=== PATIENT | male | born 1950 | race Caucasian/White ===

== ENCOUNTER → 2016-11-25 | Day surgery (SDC) | payer MEDICARE, OTHER ==
[~2016-11-25] MED LIST: AMLO10TA2 PO; BEDSIDE COMMODE1 MI1; CPMMACHINE; DIAZ5TAB PO; FISHCAP4 PO; HYDR-3580 PO; KETOROLAC TROMETHAMINE 30 MG/ML (IVP) VIAL IV PUSH ONE; LACTATED RINGER'S 1000 ML INJ 1,000 ML ONE; LIDOCAINE HCL 1% 50 ML VIAL ONE; MIDAZOLAM HCL 2 MG/2 ML VIAL ONE; OLAN2.5T PO; PROPOFOL 200 MG/20 ML AMP IV ONE; WALKER WHEELS/F1 MIS
--- NOTE | 2016-11-25 14:18 | TN ---
cc: KATTY SPAIN DATE OF SURGERY: November 25, 2016 PREOPERATIVE DIAGNOSIS 1. Status post right total knee arthroplasty 2007. Dr. Ean Ricketst, July 01, 2008. 2. Right failed total knee arthroplasty. 3. Right knee stiffness. POSTOPERATIVE DIAGNOSIS 1. Status post right total knee arthroplasty 2007. Dr. Ean Ricketts, July 01, 2008. 2. Right failed total knee arthroplasty. 3. Right knee stiffness. PROCEDURE: Right knee manipulation, aspiration, with fluoroscopic guidance of needle under anesthesia. SURGEON Allyson Spain MD ORTHOPEDIC NURSE: Staff SPECIMEN 1. Right knee synovial fluid sent for a #1 aerobic, anaerobic culture and sensitivity. 2. Fungal smear and culture. 3. Synovial fluid analysis with differential including crystals. COMPLICATIONS None ANESTHESIA GENERAL. TIVA DRAINS: None. CONDITION: Stable. PLAN OF ACTIVITY: Is per orders. PROCEDURE: The patient was operating room had satisfactory anesthesia by the Department of Anesthesia. The right knee and lower extremity was prepped and draped in usual sterile manner. Under fluoroscopic guidance an 18 gauge spinal needle was introduced into the right knee joint. The knee was aspirated 20 cc of somewhat discolored synovial fluid. It would appear to be from the polyethylene and possible wear. This fluid was sent to microbiology for aerobic, anaerobic culture and sensitivity; fungal culture and smear; synovial fluid analysis with differential including crystals. The needle was the was withdrawn. Band-Aid placed over the aspiration site. The knee was manipulated under anesthesia. Flexion was to 120 degrees, extension was to 0 degrees. The patient tolerated the procedure well and arrived to the Recovery Room in stable and satisfactory history. X-RAY: X-ray right knee two views AP shows status post total knee arthroplasty and satisfactory placement of 18 gauge spinal needle in the right knee joint. An AP with a varus stress shows significant polyethylene wear involving the medial aspect of the tibial polyethylene and possibly metal component. MD TYRON Harrington/yuri /1:52 PM /2:09 PM
[2016-11-25 20:12] LABS: WBC, SYNOVIAL FLUID 89 /MM3 (0-200)
== END | disposition home or self-care (01) ==
LOC: ESDC 12:09
PROVIDERS: ATTEND Orthopaedic Surgery Orthopaedic Surgery of the Spine
DX: M24.661 Ankylosis, right knee (principal); Z96.651 Presence of right artificial knee joint; T84.092A Other mechanical complication of internal right knee prosthesis, initial encounter
CPT/HCPCS: 01380; 27570; 73560; 76000; 87015; 87070; 87102; 87116; 87205; 87206; 89051; 89060; J1885; J2250; J3010; J7120

== ENCOUNTER 2016-12-16 15:28 | Inpatient (IN) | payer MEDICARE, BC ==
[~2016-12-16] VITALS: Ht 182.9 cm; Wt 104.3 kg
[~2016-12-16 15:28] MED LIST changes: -BEDSIDE COMMODE1 MI1; -CPMMACHINE; -KETOROLAC TROMETHAMINE 30 MG/ML (IVP) VIAL IV PUSH ONE; -LACTATED RINGER'S 1000 ML INJ 1,000 ML ONE; -LIDOCAINE HCL 1% 50 ML VIAL ONE; -MIDAZOLAM HCL 2 MG/2 ML VIAL ONE; -PROPOFOL 200 MG/20 ML AMP IV ONE; -WALKER WHEELS/F1 MIS
[2016-12-18] MEDS ORDERED: BUPIVACAINE HCL PF 0.25% 30 ML VIAL NERV BLOCK ONE (08:55)
[2016-12-18] MEDS ORDERED: ROPIVACAINE 0.5% PF INJ 30 ML VIAL NERV BLOCK ONE (08:56)
[2016-12-18] MEDS ORDERED: DEXAMETHASONE SOD PHOS PF 10 MG/ML VIAL IV ONE (08:56)
[2016-12-18] MEDS ORDERED: BUPIVACAINE LIPOSOME PF 1.3% 20 ML VIAL ONE (08:57)
[2016-12-18] MEDS ORDERED: ceFAZolin 2 GM PREMIX 50 ML IV SCH (10:45)
[2016-12-18] MEDS ORDERED: CHLORHEXIDINE GLUCONATE 2 % 1 PACK (2 CLOTHS) TOPICAL PRN (10:45)
[2016-12-18] MEDS ORDERED: POVIDONE IODINE 5% (ANTISEPSIS KIT) 4 APPLICATIONS EACH NARE PRN (10:45)
[2016-12-18] MEDS ORDERED: SODIUM CHLORID 0.9% 500 ML IV PRN (10:45)
[2016-12-18] MEDS ORDERED: ROPIVACAINE PERI-ARTICULAR INJECTION. P-ARTICULR SCH ×5 (10:45)
[2016-12-18] MEDS ORDERED: INSULIN HUMAN REGULAR 1,000 UNITS/10 ML VIAL SQ PRN (10:45)
[2016-12-18] MEDS ORDERED: CHLORHEXIDINE GLUCONATE 4% SOLN 120 ML BTL TOPICAL SCH (10:45)
[2016-12-18] MEDS ORDERED: LACTATED RINGER'S 1000 ML IV PRN (10:45)
[2016-12-18] MEDS ORDERED: VANCOMYCIN 1000 MG/NS 250 ML (for <70 kg) IV SCH ×2 (10:45)
[2016-12-18] MEDS ORDERED: METOPROLOL TARTRATE 25 MG TAB PO PRN (10:45)
[2016-12-18 11:17] VITALS: BP 149/82; PULSE 78; RESP 18; TEMP 98; O2SAT 96
[2016-12-18] MEDS ORDERED: GENTAMICIN SULFATE 80 MG/2 ML VIAL ONE (11:46)
[2016-12-18] MEDS ORDERED: LACTATED RINGER'S 1000 ML INJ 2,000 ML IV ONE (12:00)
[2016-12-18] MEDS ORDERED: ePHEDrine/NS 25 MG/5 ML SYR IV ONE (12:00)
[2016-12-18] MEDS ORDERED: PHENYLEPH/NS 1000 MCG/10 ML SYR IV ONE (12:00)
[2016-12-18] MEDS ORDERED: PROPOFOL 200 MG/20 ML AMP IV ONE (12:00)
[2016-12-18] MEDS ORDERED: fentaNYL CITRATE 250 MCG/5 ML AMP ONE (12:06)
[2016-12-18] MEDS ORDERED: MIDAZOLAM HCL 2 MG/2 ML VIAL ONE (12:49)
[2016-12-18 12:53] LABS: AUTOMATED NEUTROPHIL # 2.8 TH/MM3 (1.8-7.7); BASOPHIL % 0.9 % (0.0-2.0); EOSINOPHIL # 0.2 TH/MM3 (0-0.4); EOSINOPHIL % 3.4 % (0.0-4.0); HEMATOCRIT 38.6 % (39.0-51.0); HEMO FLAGS DIFF FINAL; LYMPH % 32.3 % (9.0-44.0); LYMPHOCYTE # 1.7 TH/MM3 (1.0-4.8); MEAN CELL VOLUME 91.3 FL (80.0-100.0); MEAN CORPUSCULAR HEMOGLOBIN 30.7 PG (27.0-34.0); MEAN CORPUSCULAR HGB CONC 33.6 % (32.0-36.0); MONO % 9.9 % (0.0-8.0); NEUT % 53.5 % (16.0-70.0); PLATELET COUNT 244 TH/MM3 (150-450); RED BLOOD COUNT 4.23 MIL/MM3 (4.50-5.90); RED CELL DISTRIBUTION WIDTH 14.5 % (11.6-17.2); WHITE BLOOD COUNT 5.2 TH/MM3 (4.0-11.0)
[2016-12-18] MEDS ORDERED: ceFAZolin INJ 1,000 MG VIAL ONE (12:56)
[2016-12-18] MEDS: LACTATED RINGER'S 1000 ML INJ 1,000 ML IV SCH ×2 (15:11→23:21)
[2016-12-18] MEDS ORDERED: DIAZEPAM 5 MG TAB PO PRN (15:15)
[2016-12-18] MEDS ORDERED: ONDANSETRON HCL 4 MG/2 ML VIAL IVP PRN (15:15)
[2016-12-18] MEDS ORDERED: Post-op Orders (for Pharmacy) MISC XX ONE (15:15)
[2016-12-18] MEDS ORDERED: ZOLPIDEM TARTRATE 5 MG TAB PO PRN (15:15)
[2016-12-18] MEDS ORDERED: SODIUM CHLORIDE 0.9% FLUSH 5 ML FLUSH IVF PRN (15:15)
[2016-12-18] MEDS ORDERED: ALUMINUM/MAGNESIUM/SIMETH 30 ML CUP PO PRN (15:15)
[2016-12-18] MEDS ORDERED: MORPHINE SULFATE 8 MG/ML INJ IM PRN (15:15)
[2016-12-18] MEDS ORDERED: ACETAMINOPHEN/HYDROcodone 325 MG/7.5 MG TAB PO PRN (15:15)
[2016-12-18] MEDS ORDERED: CPMMACHINE (15:16)
[2016-12-18] MEDS ORDERED: BEDSIDE COMMODE1 MI1 (15:16)
[2016-12-18] MEDS ORDERED: WALKER WHEELS/F1 MIS (15:16)
--- NOTE | 2016-12-18 16:28 | PD.OP ---
cc: Vasile Butler MD; Wilmer Butler MD Operative Report Date of Surgery: Dec 18, 2016 Preoperative Diagnosis: Malfunctioning right total knee replacement arthroplasty Postoperative Diagnosis: Same Procedure: Revision right total knee replacement arthroplasty Anesthesia: Gen. Surgeon: Wilmer Butler Roll Forming Machine Operator(s): Vasile Butler Operation and Findings: EBL: 100 cc INDICATION: This patient presents with a history of previous right total knee replacement arthroplasty performed elsewhere. The patient is noted progressive instability and pain with swelling of the right knee. Studies show evidence of failure of the components. The femoral component is stating posterior and medially and has worn through the plastic and into and through most of the metal of the posterior medial tibial tray. The patient has had a workup considered to be negative for evidence of infection. He presents for surgical treatment. NOTE: Vasile Butler M.D. was present for the entire surgical procedure as my first aid director. In my medical opinion her skill and care was necessary for proper management of this patient. TOURNIQUET TIME: 125 minutes COMPANY: [employer] FEMUR: Size 5, posterior stabilized, right, cemented. 14 mm x 115 mm uncemented stem. 8 mm bilateral distal augment, 8 mm posterior lateral augment , 4 mm posterior medial augment. TIBIA: Size 5, fixed bearing, 115 mm x 14 mm uncemented stem PATELLA: Oval dome POLYETHYLENE INSERT: 17.5 mm, posterior stabilized mm PROCEDURE: This patient was brought the operating room and anesthetized in the supine position. The patient was positioned supine on the table. The tourniquet was placed about the thigh, and the leg was scrubbed with alcohol followed by Hibiclens followed by ChloraPrep and draped sterilely. A timeout was done, and antibiotics were given. After exsanguination the tourniquet was inflated to 250 mmHg. the previous incision was excised. Soft tissue flaps were created. A median parapatellar arthrotomy was made. The fluid appeared benign. 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 A total synovectomy was necessary removing all of the darkened tissue down to bleeding tissue. There was a failure of the polyethylene. Fragments of polyethylene came out. The posterior stabilized polyethylene stem was fractured allowing abnormal motion of the components. We checked carefully and found that the tibial component was externally rotated to where the center of the tibial component was along the lateral edge of the tibial tubercle. The femoral component was internally rotated approximately 15 compared to the epicondylar axis. Very carefully with osteotomes to work underneath the femoral component. We were able to remove this without removing very much bone. There was significant metallosis behind a portion of the posterior lateral femoral condyle which created a large cystic region posteriorly. The attention was then directed to the tibia. We used an oscillating saw underneath the medial portion of the tibia first followed by osteotomes. We were able to break the component free from the cement removing retrograde. This allowed us to remove all of the cement from the proximal tibia. Overall bone quality and the proximal tibia is felt to be very good quality in the distal femur was average. We reamed the tibia first reaming up to 14 mm for a 115 mm stem. We used that to build off and resected left tibia to have a stable bony construct. We then directed our attention to the femur reaming to the same size 14 mm x 115 mm femoral component. We performed a distal cut down to satisfactory bone initially anticipating a 4 mm buildup and changing to an 8 mm buildup.. We then performed anterior and posterior cuts. We did several trial reductions and found that a 8 mm buildup bilaterally distally was satisfactory with an 8 mm posterior buildup laterally and a 4 mm posterior buildup medially. We trialed this and found that a 17.5 mm insert had best stability. The bony surfaces were prepared and again irrigated copiously. A field block with local anesthesia was utilized. The components were built on the back table. 2 packs of Palacos cement was mixed. The components were cemented. The cement was allowed to harden. Trial reduction showed that a 17.5 mm had best stability in flexion and extension. The patient's motion was full extension to 125 flexion with no instability to varus or valgus stress. A drain was brought through a separate stab incision. The arthrotomy was repaired with interrupted #2 Tycron suture, subcutaneous tissue 2-0 Vicryl suture and skin with metallic beatrice A sterile dressing was applied. Sponge counts, needle counts and instrument counts were all correct. The patient tolerated procedure well and was taken to recovery in satisfactory condition. 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 There was failure of the components. There was some malrotation of the tibia versus the femur which may have contributed to that. At the end of the procedure, the rotation appeared be very satisfactory and function appeared be very satisfactory. Wilmer Butler MD Dec 18, 2016 16:28
[2016-12-18] MEDS ORDERED: DO NOT ADM ANY ANTICOAGULANT DRUGS PRN (16:44)
--- NOTE | 2016-12-18 17:51 | RADRPT ---
EXAM DATE/TIME: 12/18/2016 16:51 [facility] COMPARISON: KNEE RIGHT LTD (1 OR 2 VWS), November 25, 2016, 12:43. INDICATIONS : Post op right knee. MEDICAL HISTORY : None. SURGICAL HISTORY : None. ENCOUNTER: Initial ACUITY: 1 day PAIN SCORE: Non-responsive. LOCATION: Right knee. FINDINGS: 3 views right knee. Longstem right knee prosthesis. Hardware intact. No evidence of fracture. Alignme nt within normal limits. CONCLUSION: Postoperative appearance of longstem right knee prosthesis. Fransisco Sam MD on December 18, 2016 at 17:48 Board Certified Radiologist. This report was verified electronically.
[2016-12-18] MEDS ORDERED: *morphine SULFATE 8 MG/ML PERIprocedure ONLY ONE (18:19)
[2016-12-18 19:00] VITALS: BP 149/75; PULSE 78; RESP 17; TEMP 98.5; O2SAT 95
[2016-12-18] MEDS: SODIUM CHLORIDE 0.9% FLUSH 5 ML FLUSH IVF SCH (20:33)
[2016-12-18] MEDS: ACETAMINOPHEN/HYDROcodone 325 MG/7.5 MG TAB PO PRN (20:33)
[2016-12-19] VITALS (8 sets, daily range): BP systolic 117–155; BP diastolic 68–84; PULSE 73–81; RESP 16–17; TEMP 97.5–99.2; O2SAT 93–98
[2016-12-19 04:15] LABS: PROTHROMBIN TIME - PATIENT 10.8 SEC (9.8-11.6)
[2016-12-19] MEDS ORDERED: MAGNESIUM HYDROXIDE SUSP 30 ML CUP PO PRN (04:30)
[2016-12-19] MEDS ORDERED: LACTULOSE SYRUP 20 GM/30 ML CUP PO PRN (04:30)
[2016-12-19] MEDS ORDERED: SENNOSIDES 8.6 MG TAB PO PRN (04:30)
[2016-12-19] MEDS ORDERED: BISACODYL 10 MG SUPP RECTAL PRN (04:30)
[2016-12-19] MEDS: ACETAMINOPHEN/HYDROcodone 325 MG/7.5 MG TAB PO PRN ×4 (05:49→21:34)
--- NOTE | 2016-12-19 07:07 | HHI.FF ---
Face to Face Verification Diagnosis: (1) Painful total knee replacement Physical Therapy Gait training, Transfer training, bed to chair Knee: Total knee, Protocol: Right, Full weight bearing Right LE Weight Bearing: WB as tolerated Left LE Weight Bearing: WB as tolerated Nursing RN Days per Week: 3 x Week(s): 2 Nursing: Dressing changes (clean with alcohol and apply dry sterile dressing ) Additional Instructions PT/INR q Thursday and , call/text results to Nichole AMES [phone] Goal INR 1.5-1.8 I have seen patient Jackson Sage on 12/19/16. My clinical findings support the need for the requested home health care services because: High risk of falls I certify that my clinical findings support that this patient is homebound because: Post-op weakness Nichole Dobbs Dec 19, 2016 07:07
--- NOTE | 2016-12-19 07:09 | PD.ORT.PN ---
Subjective Subjective Remarks pt doing well, no complaints of SOB, no chest pain post op knee pain Objective Vitals Vital Signs Date Time Temp Pulse Resp B/P Pulse Ox O2 Delivery O2 Flow Rate FiO2 12/19/16 04:00 Room Air 12/19/16 04:00 97.7 78 16 155/78 96 12/19/16 00:00 Room Air 12/19/16 00:00 98.8 81 16 117/68 96 12/18/16 20:00 Room Air 12/18/16 19:00 98.5 78 17 149/75 95 12/18/16 18:25 73 14 130/69 97 Room Air 12/18/16 18:00 67 14 127/66 95 Room Air 12/18/16 17:45 71 14 123/70 96 Room Air 12/18/16 17:30 72 14 126/76 98 Room Air 12/18/16 17:15 64 14 125/68 98 Nasal Cannula 2 12/18/16 17:00 68 14 128/78 96 Nasal Cannula 2 12/18/16 16:40 97.5 77 14 132/71 98 Nasal Cannula 2 12/18/16 11:17 98.0 78 18 149/82 96 I/O 12/18/16 12/18/16 12/18/16 12/19/16 12/19/16 12/19/16 07:00 15:00 23:00 07:00 15:00 23:00 Intake Total 1861 ml 1081 ml Output Total 1695 ml 1100 ml Balance 166 ml -19 ml Intake Oral 480 ml 480 ml IV Total 631 ml 601 ml Other 750 ml Output Urine Total 1375 ml 950 ml Drainage Total 170 ml 150 ml Estimated Blood Loss 50 ml Autotransfusion 100 ml # Bowel Movements 0 0 Result Diagram: 12/18/16 1230 Other Results Laboratory Tests Test 12/19/16 03:47 Prothrombin Time 10.8 SEC (9.8-11.6) Prothromb Time International 1.0 RATIO Ratio Imaging Last 24 hours Impressions Knee X-Ray 12/18/16 1511 Signed Impressions: Service Date/Time: December 16:51 - CONCLUSION: Postoperative appearance of longstem right knee prosthesis. Fransisco Sam MD Objective Remarks seen by Dr. Vasile Butler right knee dressing dry and intact no calf tenderness neg homans sign Assessment & Plan Assessment and Plan POD # 1 s/p R TKA low dose coumadin for dvt prop, 7.5 mg today PT-WBAT anticipate discharge home with [facility] tomorrow Nichole Dobbs Dec 19, 2016 07:08
[2016-12-19] MEDS: DOCUSATE SODIUM 50 MG/SENNA 8.6 MG TAB PO SCH ×2 (10:30→21:32)
[2016-12-19] MEDS: SODIUM CHLORIDE 0.9% FLUSH 5 ML FLUSH IVF SCH ×2 (10:31→21:33)
[2016-12-19] MEDS: OLANZapine 2.5 MG TAB PO SCH (10:36)
--- NOTE | 2016-12-19 15:37 | PD.CONS ---
HPI Service [facility] Hospitalists Consult Requested By Dr. Butler Reason for Consult Medical management Primary Care Physician Derick Coy III, MD Diagnoses: History of Present Illness This is a 66-year-old male with significant past medical history hypertension, degenerative disc disease and lumbar radiculopathy, OA. Patient has prior history of right total knee arthroplasty 8 years ago. He started to have problems with instability and pain. He had imaging studies that showed evidence of failure of the components. Patient was admitted for elective surgery. Patient underwent revision of right total knee replacement arthroplasty. Hospitalist services are requested for medical management. Patient is resting comfortably, he is now sitting up in the chair. He denies any chest pain, shortness of breath. Dunham catheter has been removed and he is voiding without any difficulty. Review of Systems Constitutional: DENIES: Diaphoretic episodes, Fatigue, Fever, Weight gain, Weight loss, Chills, Dizziness, Change in appetite, Night Sweats Endocrine: DENIES: Heat/cold intolerance, Polydipsia, Polyuria, Polyphagia Eyes: DENIES: Blurred vision, Diplopia, Eye inflammation, Eye pain, Vision loss , Photosensitivity, Double Vision Ears, nose, mouth, throat: DENIES: Tinnitus, Hearing loss, Vertigo, Nasal discharge, Oral lesions, Throat pain, Hoarseness, Ear Pain, Running Nose, Epistaxis, Sinus Pain, Toothache, Odynophagia Respiratory: DENIES: Apneas, Cough, Snoring, Wheezing, Hemoptysis, Sputum production, Shortness of breath Cardiovascular: DENIES: Chest pain, Palpitations, Syncope, Dyspnea on Exertion , PND, Lower Extremity Edema, Orthopnea, Claudication Gastrointestinal: DENIES: Abdominal pain, Black stools, Bloody stools, Constipation, Diarrhea, Nausea, Vomiting, Difficulty Swallowing, Anorexia Genitourinary: DENIES: Sexual dysfunction, Urinary frequency, Urinary incontinence, Urgency, Hematuria, Dysuria, Nocturia, Penile Discharge, Testicular Pain, Testicular Swelling Musculoskeletal: COMPLAINS OF: Joint pain, Back pain Integumentary: DENIES: Abnormal pigmentation, Nail changes, Pruritus, Rash Hematologic/lymphatic: DENIES: Bruising, Lymphadenopathy Immunologic/allergic: DENIES: Eczema, Urticaria Neurologic: DENIES: Abnormal gait, Headache, Localized weakness, Paresthesias, Seizures, Speech Problems, Tremor, Poor Balance Psychiatric: DENIES: Anxiety, Confusion, Mood changes, Depression, Hallucinations, Agitation, Suicidal Ideation, Homicidal Ideation, Delusions Past Family Social History Past Medical History Hypertension Osteoarthritis Degenerative disc disease Lumbar radiculopathy Past Surgical History Right knee manipulation and aspiration November 25, 2016 Left partial knee replacement Hernia repair Reported Medications Reported Meds & Active Scripts Active Reported Diazepam 5 Mg Tab 5 Mg PO HS PRN Olanzapine 2.5 Mg Tab 2.5 Mg PO DAILY Fish Oil + D3 (Fish Oil-Cholecalciferol) 1,200-1,000 Mg-Unit Cap 1 Cap PO DAILY Amlodipine (Amlodipine Besylate) 10 Mg Tab 10 Mg PO DAILY Hydrocodone-Acetaminophen 7.5-325 mg Tab 1 Tab PO Q6H PRN Allergies: Coded Allergies: No Known Allergies (Unverified , 12/18/16) Active Ordered Medications Inpatient Medications Acetaminophen/ Hydrocodone Bitart ([place] 7.5-325 Mg) 2 tab Q4H PRN PO PAIN SCALE 5 TO 10; Start 12/18/16 at 15:15 Al Hydrox/Mg Hydrox/Simethicone (Mag-Al Plus Susp Liq) 30 ml Q6H PRN PO INDIGESTION; Start 12/18/16 at 15:15 Amlodipine Besylate (Norvasc) 10 mg DAILY PO Last administered on 12/19/16 10: 29; Start 12/19/16 at 09:00 Bisacodyl (Dulcolax Supp) 10 mg DAILY PRN RECTAL SEVERE CONSTIPATION; Start 12/19/16 at 04:30 Cefazolin Sodium/ Dextrose 50 ml @ 100 mls/hr HEADING AND PRIMING OPERATOR IV Last administered on 12/18/16 13:08; Start 12/18/16 at 10:45; Stop 12/19/16 at 04:25; Status DC Cefazolin Sodium/ Sodium Chloride (Ancef Inj/NS Inj) 100 ml @ 200 mls/hr Q6H IV Last administered on 12/19/16 05:50; Start 12/18/16 at 18:00; Stop 12/19/16 at 06:43; Status DC Chlorhexidine Gluconate (Chlorhexidine 2% Cloth) 3 pack HEADING AND PRIMING OPERATOR PRN TOPICAL SEE LABEL COMMENTS Last administered on 12/18/16 10:45; Start 12/18/16 at 10:45; Stop 12/19/16 at 04:26; Status DC Chlorhexidine Gluconate 1 applic 1 applic ONCE TOPICAL Last administered on 12/18 11:10; Start 12/18/16 at 10:45; Stop 12/19/16 at 04:25; Status DC Diazepam (Valium) 5 mg HS PRN PO ANXIETY; Start 12/18/16 at 15:15 Insulin Human Regular (NovoLIN R INJ) See Protocol Table ... HEADING AND PRIMING OPERATOR PRN SQ SEE PROTOCOL TABLE; Start 12/18/16 at 10:45; Stop 12/19/16 at 04:26; Status DC IV Flush (NS Flush) 2 ml UNSCH PRN IVF FLUSH AFTER USING IV ACCESS; Start at 15:15 IV Flush 2 ml 2 ml BID IVF Last administered on 12/19/16 10:31; Start 12/18/16 at 21:00 Lactated Ringer's (Lr 1000 ml Inj) 1,000 ml @ 80 mls/hr [id number] IV Last administered on 12/18/16 23:21; Start 12/18/16 at 15:11 Lactulose (Lactulose Liq) 30 ml DAILY PRN PO SEVERE CONSTIPATION Last administered on 12/19/16 10:29; Start 12/19/16 at 04:30 Magnesium Hydroxide (Milk Of Magnesia Liq) 30 ml Q12H PRN PO MILD CONSTIPATION Last administered on 12/19/16 10:29; Start 12/19/16 at 04:30 Metoprolol Tartrate (Lopressor) 25 mg HEADING AND PRIMING OPERATOR PRN PO SEE LABEL COMMENTS; Start 12/18/16 at 10:45; Stop 12/19/16 at 04:26; Status DC Miscellaneous Information ALL NURSING DEPARTME... UNSCH PRN .XX SEE LABEL COMMENTS; Start 12/18/16 at 16:44; Stop 12/19/16 at 16:43 Miscellaneous Information (Post-op Orders (for Pharmacy)) STAT ONCE XX ; Start 12/18/16 at 15:15; Stop 12/18/16 at 16:41; Status DC Morphine Sulfate (Morphine Inj) 4 mg Q3H PRN IM Pain >7 when off SEM MANAGER; Start 12/18/16 at 15:15 Olanzapine 2.5 mg 2.5 mg DAILY PO Last administered on 12/19/16 10:36; Start at 09:00 Ondansetron HCl (Zofran Inj) 4 mg Q6H PRN IVP NAUSEA OR VOMITING; Start at 15:15 Patient Medication Teaching (Coumadin Booklet) 1 ONCE ONCE XX ; Start 12/18/16 at 16:00; Stop 12/18/16 at 16:01; Status DC Povidone Iodine (Betadine 5% Antisepsis Kit) 1 applic HEADING AND PRIMING OPERATOR PRN EACH NARE SEE LABEL COMMENTS Last administered on 12/18/16 11:10; Start 12/18/16 at 10:45; Stop 12/19/16 at 04:26; Status DC Ropivacaine 24.63 ml/Ketorolac Tromethamine 30 mg/Epinephrine HCl 0.5 mg/ Clonidine 80 mcg/ Sodium Chloride 100 ml @ 200 mls/hr ONCE P-ARTICULR Last administered on 12/18/16 13:49; Start 12/18/16 at 10:45; Stop 12/19/16 at 04:26; Status DC Senna/Docusate Sodium (Mariaelena-Colace) 1 tab BID PO Last administered on 12/19/16 10:30; Start 12/19/16 at 09:00 Sennosides (Senokot) 17.2 mg Q12H PRN PO MODERATE CONSTIPATION Last administered on 12/19/16 10:30; Start 12/19/16 at 04:30 Sodium Chloride (NS 500 ml Inj) 500 ml @ 30 mls/hr [id number] PRN IV SEE LABEL COMMENTS; Start 12/18/16 at 10:45; Stop 12/19/16 at 04:26; Status DC Vancomycin HCl 1000 mg/Sodium Chloride 250 ml @ 250 mls/hr HEADING AND PRIMING OPERATOR IV Last administered on 12/18/16 11:20; Start 12/18/16 at 10:45; Stop 12/21/16 at 10:44 Warfarin Sodium (Coumadin) 7.5 mg ONCE ONCE PO ; Start 12/19/16 at 16:00; Stop 12/19/16 at 16:01 Zolpidem Tartrate (Ambien) 5 mg HS PRN PO SLEEP Last administered on 12/18/16 23:20; Start 12/18/16 at 15:15 Family History Positive for cancer Social History Patient lives with significant other, he is retired. No smoking, social alcohol , no substance abuse. Physical Exam Vital Signs Vital Signs Date Time Temp Pulse Resp B/P Pulse Ox O2 Delivery O2 Flow Rate FiO2 12/19/16 12:00 99.2 78 16 130/69 96 12/19/16 08:00 98.8 80 16 141/84 95 12/19/16 04:00 Room Air 12/19/16 04:00 97.7 78 16 155/78 96 12/19/16 00:00 Room Air 12/19/16 00:00 98.8 81 16 117/68 96 12/18/16 20:00 Room Air 12/18/16 19:00 98.5 78 17 149/75 95 12/18/16 18:25 73 14 130/69 97 Room Air 12/18/16 18:00 67 14 127/66 95 Room Air 12/18/16 17:45 71 14 123/70 96 Room Air 12/18/16 17:30 72 14 126/76 98 Room Air 12/18/16 17:15 64 14 125/68 98 Nasal Cannula 2 12/18/16 17:00 68 14 128/78 96 Nasal Cannula 2 12/18/16 16:40 97.5 77 14 132/71 98 Nasal Cannula 2 Physical Exam GENERAL: This is a well-nourished, well-developed patient, in no apparent distress. SKIN: No rashes, ecchymoses or lesions. Cool and dry. HEAD: Atraumatic. Normocephalic. No temporal or scalp tenderness. EYES: Pupils equal round and reactive. Extraocular motions intact. No scleral icterus. No injection or drainage. ENT: Nose without bleeding, purulent drainage or septal hematoma. Throat without erythema, tonsillar hypertrophy or exudate. Uvula midline. Airway patent. NECK: Trachea midline. No JVD or lymphadenopathy. Supple, nontender, no meningeal signs. CARDIOVASCULAR: Regular rate and rhythm without murmurs, gallops, or rubs. RESPIRATORY: Clear to auscultation. Breath sounds equal bilaterally. No wheezes , rales, or rhonchi. GASTROINTESTINAL: Abdomen soft, non-tender, nondistended. No hepato-splenomegaly , or palpable masses. No guarding. MUSCULOSKELETAL: Right leg in bulky dressing, intact sensation to right foot. Right pedal pulse 2+. Has a Hemovac drain with sanguinous drainage. No other joint abnormality. Left pedal pulse 2+. NEUROLOGICAL: Awake and alert. Cranial nerves II through XII intact. Motor and sensory grossly within normal limits. Five out of 5 muscle strength in all muscle groups. Normal speech. Laboratory Laboratory Tests Test 12/19/16 03:47 Prothrombin Time 10.8 Prothromb Time International 1.0 Ratio Result Diagram: 12/18/16 1230 Imaging Last Impressions Knee X-Ray 12/18/16 1511 Signed Impressions: Service Date/Time: , December 18, 2016 16:51 - CONCLUSION: Postoperative appearance of longstem right knee prosthesis. Fransisco Sam MD A/P Diagnosis: (1) Lumbar degenerative disc disease (2) Low back pain (3) right tota knee arthroplasty revision (4) HTN (hypertension) (5) Osteoarthritis Assessment and Plan Thank you for this consultation, we will assist with medical management 66-year-old male with history of OA, prior history of right total knee arthroplasty 8 years ago. Recent findings of failure of components. Admitted for elective surgery, status post revision right total knee replacement arthroplasty. -Continue with postoperative orthopedic care Bowel regimen Pain management Warfarin for DVT prophylaxis, follow INR daily Hypertension, stable Continue home medications History of degenerative disc disease and chronic low back pain Continue with current pain management Continue with Coumadin for DVT prophylaxis Plan of care has been discussed with the patient, attending and registered nurse. Further management of the patient will be dependent on the hospital course This patient was seen by myself and Dr. Conn, this consultation is written on her behalf Problem Qualifiers (1) Low back pain: Qualified Code: M54.5 - Chronic low back pain, unspecified back pain laterality , with sciatica presence unspecified (2) HTN (hypertension): Qualified Code: I10 - Essential hypertension (3) Osteoarthritis: Qualified Code: M19.90 - Osteoarthritis, unspecified osteoarthritis type, unspecified site Roxana Oliveira Dec 19, 2016 15:37
[2016-12-19] MEDS ORDERED: WARFARIN SOD 7.5 MG TAB PO ONE (16:00)
[2016-12-19] MEDS ORDERED: WARFARIN SOD 5 MG TAB PO SCH (16:00)
[2016-12-19] MEDS: LACTATED RINGER'S 1000 ML INJ 1,000 ML IV SCH (16:11)
[2016-12-20 00:33] VITALS: BP 124/72; PULSE 82; RESP 17; TEMP 98.9; O2SAT 96
[2016-12-20] MEDS: LACTATED RINGER'S 1000 ML INJ 1,000 ML IV SCH (04:41)
[2016-12-20 06:02] LABS: HEMATOCRIT 29.8 % (39.0-51.0); MEAN CELL VOLUME 91.5 FL (80.0-100.0); MEAN CORPUSCULAR HEMOGLOBIN 31.6 PG (27.0-34.0); MEAN CORPUSCULAR HGB CONC 34.6 % (32.0-36.0); PLATELET COUNT 259 TH/MM3 (150-450); RED BLOOD COUNT 3.26 MIL/MM3 (4.50-5.90); RED CELL DISTRIBUTION WIDTH 14.5 % (11.6-17.2); REVIEW FLAG FINAL; WHITE BLOOD COUNT 6.4 TH/MM3 (4.0-11.0)
[2016-12-20 06:28] LABS: PROTHROMBIN TIME - PATIENT 11.3 SEC (9.8-11.6)
--- NOTE | 2016-12-20 07:18 | PD.ORT.PN ---
Subjective Subjective Remarks pt doing well, no complaints of SOB, no chest pain post op knee pain but improved ready to be discharged home today Objective Vitals Vital Signs Date Time Temp Pulse Resp B/P Pulse Ox O2 Delivery O2 Flow Rate FiO2 12/20/16 00:33 98.9 82 17 124/72 96 12/19/16 20:35 98.1 78 17 142/77 98 12/19/16 18:35 94 Trach Collar 94 12/19/16 16:00 97.5 73 16 124/72 97 12/19/16 13:55 93 12/19/16 12:00 99.2 78 16 130/69 96 12/19/16 10:30 Room Air 12/19/16 08:00 98.8 80 16 141/84 95 I/O 12/19/16 12/19/16 12/19/16 12/20/16 12/20/16 12/20/16 07:00 15:00 23:00 07:00 15:00 23:00 Intake Total 1081 ml 960 ml 240 ml 240 ml Output Total 1100 ml 270 ml 80 ml 1150 ml Balance -19 ml 690 ml 160 ml -910 ml Intake Oral 480 ml 960 ml 240 ml 240 ml IV Total 601 ml Output Urine Total 950 ml 200 ml 1150 ml Drainage Total 150 ml 70 ml 80 ml # Voids 1 # Bowel Movements 0 1 0 Result Diagram: 12/20/16 0536 12/20/16 0536 Other Results Laboratory Tests Test 12/20/16 05:36 Prothrombin Time 11.3 SEC (9.8-11.6) Prothromb Time International 1.0 RATIO Ratio Imaging Last 24 hours Impressions Knee X-Ray 12/18/16 1511 Signed Impressions: Service Date/Time: December 16:51 - CONCLUSION: Postoperative appearance of longstem right knee prosthesis. Fransisco Sam MD Objective Remarks seen by Dr. Vasile Butler right knee dressing dry and intact, drain in place with canvas knee splint no calf tenderness neg homans sign Assessment & Plan Assessment and Plan POD # 2 s/p R TKA low dose coumadin for dvt prop, 7.5 mg today PT-WBAT discharge home today with [facility], orthopedically stable Nichole Dobbs Dec 20, 2016 07:18
[2016-12-20 08:00] VITALS: BP 144/78; PULSE 84; RESP 18; TEMP 98.6; O2SAT 95
[2016-12-20] MEDS: ACETAMINOPHEN/HYDROcodone 325 MG/7.5 MG TAB PO PRN (08:44)
[2016-12-20] MEDS: SODIUM CHLORIDE 0.9% FLUSH 5 ML FLUSH IVF SCH (09:00)
--- NOTE | 2016-12-20 09:01 | HHI.PR ---
Subjective Subjective Remarks eating okay, no n/v no fever no cp no sob pain well controlled had BM hemovac drain to be removed today Review of Systems Constitutional Constitutional Remarks 12 point ROS completed, negative except as noted Vitals/Results Intake & Output 12/19/16 12/19/16 12/20/16 15:00 23:00 07:00 Intake Total 960 ml 240 ml 240 ml Output Total 270 ml 80 ml 1150 ml Balance 690 ml 160 ml -910 ml Intake Oral 960 ml 240 ml 240 ml Output Urine Total 200 ml 1150 ml Drainage Total 70 ml 80 ml # Voids 1 # Bowel Movements 1 0 Vital Signs Vital Signs Date Time Temp Pulse Resp B/P Pulse Ox O2 Delivery O2 Flow Rate FiO2 12/20/16 08:00 98.6 84 18 144/78 95 12/20/16 00:33 98.9 82 17 124/72 96 12/19/16 20:35 98.1 78 17 142/77 98 12/19/16 18:35 94 Trach Collar 94 12/19/16 16:00 97.5 73 16 124/72 97 12/19/16 13:55 93 12/19/16 12:00 99.2 78 16 130/69 96 12/19/16 10:30 Room Air CBC/BMP: 12/20/16 0536 12/20/16 0536 Lab Results Laboratory Tests Test 12/20/16 05:36 White Blood Count 6.4 TH/MM3 Red Blood Count 3.26 MIL/MM3 Hemoglobin 10.3 GM/DL Hematocrit 29.8 % Mean Corpuscular Volume 91.5 FL Mean Corpuscular Hemoglobin 31.6 PG Mean Corpuscular Hemoglobin 34.6 % Concent Red Cell Distribution Width 14.5 % Platelet Count 259 TH/MM3 Mean Platelet Volume 8.9 FL Prothrombin Time 11.3 SEC Prothromb Time International 1.0 RATIO Ratio Sodium Level 141 MEQ/L Potassium Level 4.0 MEQ/L Chloride Level 106 MEQ/L Carbon Dioxide Level 30.0 MEQ/L Anion Gap 5 MEQ/L Blood Urea Nitrogen 15 MG/DL Creatinine 0.90 MG/DL Estimat Glomerular Filtration 85 ML/MIN Rate Random Glucose 98 MG/DL Calcium Level 8.8 MG/DL Physical Exam General General Appearance: Well Developed, Well Nourished, No Acute Distress, Comfortable Eyes Eye Exam: Pupils Equal, Pupils Reactive Ears & Nose Ears & Nose Exam: Nasal Mucosa [place] Throat Throat Exam: Oral Mucosa [place] & Moist Neck Neck Exam: Neck Supple, Trachea Midline Pulmonary Resp Exam: Clear Bilaterally, No Distress Cardiology CV Exam: Regular, Good Perfusion Gastrointestinal/Abdomen GI Exam: Soft, Non-Tender, Bowel Sounds Present, Non-Distended Musculoskeletal MS Exam: Joints Intact MS Remarks right knee with bulky dressing Integumentary Skin Exam: Warm, Dry Extremeties Extremities Exam: Pedal Pulses Palpable, Trace Edema Neurologic Neuro Exam: Alert, Awake, Oriented, Speech Clear, Check Airman Equal VTE Prophylaxis VTE Prophylaxis Device: TEDs VTE Prophylaxis Meds: Coumadin Assessment/Plan Problem List: (1) right tota knee arthroplasty revision (2) Lumbar degenerative disc disease (3) HTN (hypertension) (4) Osteoarthritis (5) Low back pain Assessment/Plan 66-year-old male with history of OA, prior history of right total knee arthroplasty 8 years ago. Recent findings of failure of components. Admitted for elective surgery, status post revision right total knee replacement arthroplasty. -Continue with postoperative orthopedic care Bowel regimen Pain management Warfarin for DVT prophylaxis, follow INR daily Hypertension, stable Continue home medications History of degenerative disc disease and chronic low back pain Continue with current pain management Continue with Coumadin for DVT prophylaxis pt. going home with HHC and PT clear for discharge HH stable D/W RN D/W Dr. Conn D/W pt. This patient was seen by myself and Dr. Conn, this note is written on her behalf Problem Qualifiers (1) HTN (hypertension): Qualified Code: I10 - Essential hypertension (2) Osteoarthritis: Qualified Code: M19.90 - Osteoarthritis, unspecified osteoarthritis type, unspecified site (3) Low back pain: Qualified Code: M54.5 - Chronic low back pain, unspecified back pain laterality , with sciatica presence unspecified Roxana Oliveira Dec 20, 2016 09:01
[2016-12-20] MEDS: OLANZapine 2.5 MG TAB PO SCH (09:06)
[2016-12-20] MEDS: DOCUSATE SODIUM 50 MG/SENNA 8.6 MG TAB PO SCH (09:06)
[2016-12-20 09:14] VITALS: O2SAT 95
[2016-12-20] MEDS ORDERED: WARFARIN SOD 7.5 MG TAB PO ONE (14:00)
[2016-12-20] MEDS ORDERED: WARFARIN SOD 5 MG TAB PO SCH (16:00)
--- NOTE | 2016-12-26 14:26 | HHI.DS ---
Discharge Summary Admission Date Dec 18, 2016 at 10:25 Discharge Date: Dec 20, 2016 Admitting Diagnosis Right knee painful total knee arthroplasty, failed TKA Diagnosis: (1) Painful total knee replacement Diagnosis: Principal Procedures R rev TKA Brief History This is a 66 year old male patient who presents with the following history. Patient underwent right total knee arthroplasty in 2007. He had onset of pain and swelling involving his right knee October 2016. He had lab work which came back normal and had right knee aspiration and manipulation which came back no evidence of infection. X-rays showed failed components and it was recommended to undergo revisional surgery. Imaging x-rays of the right knee show failed total knee arthroplasty PE at Discharge seen by Dr. Vasile Butler right knee dressing dry and intact, drain in place with canvas knee splint no calf tenderness neg homans sign Hospital Course Patient underwent satisfactory anaesthesia by the dept of anaesthesia. Underwent rev right total knee arthroplasty on the date of admission. Was treated with low dose coumadin night before procedure and will be continued to be treated with low dose coumadin for four weeks post-operatively to prevent DVT. Also was treated with knee high TEDs and sequentials during his stay. Medical was consulted and followed patient. He was started with CPM and PT on pod #1. He progressed well and was discharged home with [facility] PT and nursing on pod # 2 in stable condition. Pt Condition on Discharge: Stable Discharge Disposition: Disch w/ Home Health Serv Discharge Instructions Diet Instructions: Coumadin (Warfarin) Diet Activities You Can Perform: Weight Bearing as Nichole Ambrose Dec 26, 2016 14:26
== END 2016-12-20 13:09 | disposition home health service (06) | DRG 468 ==
LOC: HSDI 12-18 10:25 → N06B 12-18 18:46
PROVIDERS: ADMIT Orthopaedic Surgery Orthopaedic Surgery of the Spine; ATTEND Orthopaedic Surgery Orthopaedic Surgery of the Spine
PROC: 0SRT0J9 Replacement of Right Knee Joint, Femoral Surface with Synthetic Substitute, Cemented, Open Approach (ICD-10-PCS; 2016-12-18)
PROC: 0SPC09Z Removal of Liner from Right Knee Joint, Open Approach (ICD-10-PCS; 2016-12-18)
PROC: 0SUV09Z Supplement Right Knee Joint, Tibial Surface with Liner, Open Approach (ICD-10-PCS; 2016-12-18)
PROC: 0SPT0JZ Removal of Synthetic Substitute from Right Knee Joint, Femoral Surface, Open Approach (ICD-10-PCS; principal; 2016-12-18 12:50)
DX: T84.022A Instability of internal right knee prosthesis, initial encounter (principal); T84.062A Wear of articular bearing surface of internal prosthetic right knee joint, initial encounter; I10 Essential (primary) hypertension; T84.092A Other mechanical complication of internal right knee prosthesis, initial encounter; Y79.2 Prosthetic and other implants, materials and accessory orthopedic devices associated with adverse incidents; Y92.9 Unspecified place or not applicable; Y83.8 Other surgical procedures as the cause of abnormal reaction of the patient, or of later complication, without mention of misadventure at the time of the procedure; M19.90 Unspecified osteoarthritis, unspecified site; M51.36 Other intervertebral disc degeneration, lumbar region; G89.29 Other chronic pain; G89.18 Other acute postprocedural pain
CPT/HCPCS: 73560; 76937; 80048; 85025; 85027; 85610; 86850; 86900; 86901; 86920; 94150; C1776; C9290; J0171; J0690; J0735; J1100; J1580; J1885; J2250; J2270; J2370; J2795; J3010; J3370; J7050; J7120

== ENCOUNTER → 2017-03-17 | Outpatient (CLI) | payer MEDICARE, BC ==
[~2017-03-17] MED LIST changes: +BEDSIDE COMMODE1 MI1; +CPMMACHINE; +CYCL1TAB29 PO; -FISHCAP4 PO; +WALKER WHEELS/F1 MIS
[2017-03-17 13:07] LABS: BLOOD, URINE NEG (NEG); COMMENT (UR) CULT NOT INDICATED; CULTURE IF INDICATED CULT NOT INDICATED; GLUCOSE,URINE NEG (NEG); HYALINE CAST, URINE 1 /lpf (RARE); KETONE, URINE NEG (NEG); MUCUS URINE FEW /lpf (OCC); NITRITE,URINE NEG (NEG); URINE COLOR YELLOW (YELLW/STRAW)
[2017-03-17 13:11] LABS: APTT (PATIENT) 25.7 SEC (24.3-30.1); INTERNATIONAL NORMALIZED RATIO 0.9 RATIO; PROTHROMBIN TIME - PATIENT 9.7 SEC (9.8-11.6)
[2017-03-17 13:13] LABS: AUTOMATED NEUTROPHIL # 3.9 TH/MM3 (1.8-7.7); BASOPHIL % 0.6 % (0.0-2.0); EOSINOPHIL # 0.1 TH/MM3 (0-0.4); EOSINOPHIL % 1.7 % (0.0-4.0); HEMATOCRIT 42.2 % (39.0-51.0); HEMO FLAGS DIFF FINAL; LYMPH % 40.9 % (9.0-44.0); LYMPHOCYTE # 3.3 TH/MM3 (1.0-4.8); MEAN CELL VOLUME 88.8 FL (80.0-100.0); MEAN CORPUSCULAR HGB CONC 32.7 % (32.0-36.0); NEUT % 47.8 % (16.0-70.0); PLATELET COUNT 295 TH/MM3 (150-450); RED BLOOD COUNT 4.75 MIL/MM3 (4.50-5.90); RED CELL DISTRIBUTION WIDTH 17.4 % (11.6-17.2); WHITE BLOOD COUNT 8.1 TH/MM3 (4.0-11.0)
[2017-03-17 13:34] LABS: ANION GAP 8 MEQ/L (5-15); AST (GOT) 8 U/L (15-37); BLOOD UREA NITROGEN 17 MG/DL (7-18); CHLORIDE 107 MEQ/L (98-107); GLOMERULAR FILTRATION RATE 69 ML/MIN (>89); GLUCOSE,FASTING 86 MG/DL (74-99); POTASSIUM 4.3 MEQ/L (3.5-5.1); SODIUM (NA) 141 MEQ/L (136-145)
[2017-03-17 13:48] LABS: ALKALINE PHOSPHATASE 99 U/L (45-117); ALT (GPT) 20 U/L (12-78); TOTAL BILIRUBIN ADULT 0.4 MG/DL (0.2-1.0)
--- NOTE | 2017-03-17 14:22 | RADRPT ---
EXAM DATE/TIME: 03/17/2017 13:53 [facility] COMPARISON: No previous studies available for comparison. INDICATIONS : Evaluate for pneumothorax, pneumonia or communicable disease. Preop chest for lumbar spine surgery on 03/24/17, no chest surgery, nonsmoker, no chest complaints MEDICAL HISTORY : None. SURGICAL HISTORY : None. ENCOUNTER: Initial ACUITY: 1 day PAIN SCORE: 0/10 LOCATION: Bilateral lumbar spine FINDINGS: PA and lateral views of the chest demonstrate the lungs to be symmetrically aerated without evidence of mass, infiltrate or effusion. The cardiomediastinal contours are unremarkable. Osseous structure s are intact. A degenerative thoracic spine. CONCLUSION: No acute disease. Gulshan Guillermo Jr., MD on March 17, 2017 at 14:18 Board Certified Radiologist. This report was verified electronically.
== END ==
LOC: CPRE 12:36
PROVIDERS: ATTEND Neurological Surgery
DX: Z01.811 Encounter for preprocedural respiratory examination (principal); Z01.812 Encounter for preprocedural laboratory examination; Z01.818 Encounter for other preprocedural examination; Z79.01 Long term (current) use of anticoagulants; M43.16 Spondylolisthesis, lumbar region; M48.06 Spinal stenosis, lumbar region; M99.83 Other biomechanical lesions of lumbar region; M51.36 Other intervertebral disc degeneration, lumbar region
CPT/HCPCS: 36415; 71020; 80053; 81001; 85025; 85610; 85730

== ENCOUNTER 2017-03-24 05:49 | Inpatient (IN) | payer MEDICARE, BC ==
--- NOTE | 2017-03-23 08:20 | MH ---
cc: LOU WAGNER M.D. [facility],Z[facility] SHEIKHDELMIS DATE OF ADMISSION 03/24/2017 ADMISSION DIAGNOSIS Lumbar degenerative disc disease. HISTORY OF PRESENT ILLNESS This is a 67-year-old male who presented to us for an evaluation of low back pain that he has had for the last year and a half and has progressively gotten worse. He states the pain extends into the posterior left leg to the knee. He has a history of bilateral knee replacement and his right knee needs to be replaced again and he has undergone this and recuperated from this. He denies any paresthesias in his legs. He has a significant difficulty standing or walking. He states his pain in the low back is controlled when he is sitting or lying down. When he walks he has to have a kyphotic posture to help with the pain. He rates his pain as 5-6/10. He states he has had physical therapy which has exacerbated his low back pain. PAST MEDICAL HISTORY Significant for hypertension, anxiety. Bilateral knee replacement, left knee 2007, right knee 2007 and revision in 2016. CURRENT MEDICATIONS 1. Diazepam 5 milligrams p.o. p.r.n. anxiety. 2. Olanzapine 2.5 milligrams p.o. daily. 3. Amlodipine 10 milligrams p.o. daily. 4. Hydrocodone/Acetaminophen 7.5/325 p.o. q. 6 hours p.r.n. pain. ALLERGIES He has no known drug allergies. FAMILY HISTORY His mother is at age 42 from cancer. SOCIAL HISTORY The patient does not smoke and has not smoked in the past. He drinks zero to two drinks of alcohol per day. Denies any substance abuse. REVIEW OF SYSTEMS CONSTITUTIONAL: Denies any fever or chills. EARS/NOSE/THROAT: No pharyngitis, exudates or bloody drainage from his nose. CARDIOVASCULAR: No chest pain or palpitations. RESPIRATORY: No cough or shortness of breath. GENITOURINARY: No dysuria, hematuria. MUSCULOSKELETAL: Positive for low back pain. SKIN: No pruritus or rashes. NEUROLOGIC: No difficulty with speech or memory. GASTROINTESTINAL: No nausea, vomiting, abdominal pain. ENDOCRINE: No polyuria, polydipsia. HEMATOLOGIC: No bruising or bleeding tendencies. PHYSICAL EXAMINATION HEAD: Normocephalic, atraumatic. NECK: Supple. No carotid bruits heard on auscultation. LUNGS: Clear to auscultation bilaterally. HEART: Regular rate rhythm. Normal S1-S2. ABDOMEN: Soft, nontender. Positive bowel sounds. SKIN: Reveals no cyanosis or erythema. He has bilateral anterior knee scars that are well-healed. MUSCULOSKELETAL: He has 5/5 strength in lower extremities. He walks without any assistive device. NEUROLOGIC: He is awake, alert, oriented. Cranial nerves II-XII grossly intact. His speech is fluent. Comprehension is good. Reflexes are very diminished in the lower extremities. DATA REVIEW MRI of the lumbar spine from October 13, 2016 reveals severe L2-L3 and L3-L4 degenerative disc disease with near complete disc height collapse and endplate changes along with a grade 1 L3-L4 spondylolisthesis. There is facet and ligamentum flavum hypertrophy along with disc protrusion leading to moderate L2-L4 spinal stenosis. There is also moderate L5-S1 degenerative disc disease with a grade 1 spondylolisthesis and associated foraminal stenosis. PLAN We have discussed treatment options with the patient and he is requesting we proceed with surgical intervention. We have therefore discussed an L2-L3 and L3-L4 transforaminal decompression with interbody fusion along with risk, benefit, alternative and recovery time. We have discussed the risks involved with surgery include but not limited to bleeding, infection, muscle weakness, voice hoarseness, difficulty swallowing, heart attack, stroke, blood clots, non-fusion and scar tissue formation. We have discussed that it is possible that once he is healed from surgery he may also need an L5-S1 fusion at a later date. The procedure was explained using spine models in the office and all of his questions were answered to his satisfaction. No guarantees were given to the patient as to the results of the surgery. The patient states that he understands the procedure as well as the risks involved and he is requesting that we proceed and he was therefore scheduled accordingly. Dictated by: Tata Jackson PA-C 03/24/2017 MD SHILPA Sheppard/PEDRO /12:52 PM /7:54 AM
[~2017-03-24] VITALS: Ht 182.9 cm; Wt 102.3 kg
[~2017-03-24 05:49] MED LIST changes: -CYCL1TAB29 PO; -DIAZ5TAB PO; -OLAN2.5T PO
[2017-03-24] MEDS ORDERED: METOPROLOL TARTRATE 25 MG TAB PO PRN (06:45)
[2017-03-24] MEDS ORDERED: VANCOMYCIN HCL 1000 MG ON-CALL/NS 250 ML IV SCH ×2 (06:45)
[2017-03-24] MEDS ORDERED: INSULIN HUMAN REGULAR 1,000 UNITS/10 ML VIAL SQ PRN (06:45)
[2017-03-24] MEDS ORDERED: SODIUM CHLORID 0.9% 500 ML IV PRN (06:45)
[2017-03-24] MEDS ORDERED: LACTATED RINGER'S 1000 ML IV PRN (06:45)
[2017-03-24] MEDS ORDERED: POVIDONE IODINE 5% (ANTISEPSIS KIT) 4 APPLICATIONS EACH NARE PRN (06:45)
[2017-03-24] MEDS ORDERED: CHLORHEXIDINE GLUCONATE 2 % 1 PACK (2 CLOTHS) TOPICAL PRN (06:45)
[2017-03-24] MEDS: SODIUM CHLOR 0.9% 1000 ML INJ 1,000 ML IV SCH (06:45)
[2017-03-24] MEDS ORDERED: BUPIVACAINE/EPINEPHRINE 0.5% 50 ML VIAL ONE (07:05)
[2017-03-24] MEDS ORDERED: VANCOMYCIN HCL 1000 MG VIAL ONE (07:05)
[2017-03-24] MEDS ORDERED: GELFOAM SIZE 100 ONE ×2 (07:06→10:07)
[2017-03-24] MEDS ORDERED: THROMBIN (TOPICAL) 5,000 UNIT VIAL ONE ×2 (07:06→10:07)
[2017-03-24] MEDS ORDERED: SODIUM CHLORIDE 0.9% 20 ML VIAL ONE (08:05)
[2017-03-24] MEDS ORDERED: MIDAZOLAM HCL 2 MG/2 ML VIAL ONE ×2 (08:36→13:54)
[2017-03-24] MEDS ORDERED: ONDANSETRON HCL 4 MG/2 ML VIAL ONE (08:37)
[2017-03-24] MEDS ORDERED: DEXAMETHASONE SOD PHOS 4 MG/ML VIAL ONE (08:37)
[2017-03-24] MEDS ORDERED: FAMOTIDINE 20 MG/2 ML VIAL ONE (08:37)
--- NOTE | 2017-03-24 13:31 | RADRPT ---
EXAM DATE/TIME: 03/24/2017 08:57 [facility] COMPARISON: No previous studies available for comparison. INDICATIONS : L2-L3 L3-L4 interbody fusion. MEDICAL HISTORY : None. SURGICAL HISTORY : None. ENCOUNTER: Initial ACUITY: 1 day PAIN SCORE: Non-responsive. LOCATION: lumbar FINDINGS: I don't have any pertinent priors. Anterior and lateral views in the operating room show evidence of fusion procedure with interbody and left posterior instrumentation at L2/L3 and L3/L4. A couple joaquín meters of degenerative appearing retrolisthesis seen at L3/L4. There is moderate disc space narrowing with anterior osseous bridging of both of these levels. Hardware appears intact. No evidence of an a cute complication. CONCLUSION: Expected radiographic appearance in the operating room of fusion procedure with interbody and left po sterior instrumentation at L2/L3 and L3/L4. Ean Shin MD on March 24, 2017 at 13:27 Board Certified Radiologist. This report was verified electronically.
--- NOTE | 2017-03-24 13:42 | PD.OP ---
MD Derick Hammond MD Operative Report Date of Surgery: Mar 24, 2017 Preoperative Diagnosis: Lumbar L2-3 and L3-4 severe degenerative disc disease with associated facet and ligamentum flavum hypertrophy and spinal/foraminal stenosis with spondylolisthesis; Intractable low back pain with radiculopathy Postoperative Diagnosis: Same Procedure: Lumbar L2-3 and L3-4 transforaminal interbody fusion; L2-4 pedicle screw fixation; L2-3 and L3-4 interbody cage placement; microsurgical technique Anesthesia: Gen. endotracheal by Aj Kincaid Surgeon: Speedy Nash M.D. Superintendent System Operation(s): Olena Calloway Operation and Findings: Following initiation of general endotracheal anesthesia, the patient had a Dunham catheter placed along with sequential compression devices. A gram of vancomycin was administered intravenously and he was turned in a prone position on a Carlitos frame, on a Jj table, and all pressure points adequately padded. The lumbosacral region was then prepped with Chloraprep and sterilely draped with Ioban along the usual sterile draping. A left paraspinal skin incision was then made extending from the L2-4 levels after infiltrating the skin with 0.5% Marcaine with epinephrine solution extending down through the fascia. The muscle fibers were split using avascular fatty plane and detached from the underlying facets, transverse process and lateral portion of lamina on the right side and a self-retaining retractor used for exposure. Intraoperative fluoroscopy was also used for level of confirmation along with microscope magnification for further dissection. There was significant facet and ligamentum flavum hypertrophy noted at the L2-3 and L3-4 levels. Left L2-3 and L3-4 facets were resected with a drill bit along with the lamina and there was severe foraminal and lateral recess stenosis from hypertrophied ligamentum flavum and facet which were decompressed. There was significant disc height collapse along with disc protrusion also leading to the foraminal stenosis as well as degenerative spondylolisthesis. Epidural hemostasis was achieved with bipolar cautery and Gelfoam with thrombin. Subsequently entered into the disc space at the L2-3 and L3-4 levels with a #15 blade and meagan were used for discectomy. I then placed PEEK cages packed with local autograft bone and more local autograft bone was packed adjacent to the cages in interspace for added interbody fusion at both levels. With placement of the cages, I was able to distract the interspace and opened up the foramen further bilaterally. Subsequently in order to facilitate the fusion and provide stabilization, pedicle screw fixation was undertaken using [place] spine screws on entry point at the left L2-L3 and L4 levels at the junction of the transverse process and facet. Subsequently using AP and lateral fluoroscopy tap and screw placement undertaken. The screws were then connected with a danielle and locked in place with caps. The construct appeared very secure at this point. The area was then copiously irrigated with Vancomycin solution and powder. The retractors were removed and the bipolar cautery used for hemostasis. The muscle fascia was then approximated using 2-0 Vicryl interrupted stitches and then 3-0 Vicryl subcuticular stitches also placed in interrupted fashion. The final skin closure was completed with Mastisol and Steri-Strips. A sterile dressing was then applied. The patient then turned in supine position, extubated and taken to recovery room. There were no intraoperative complications. All sponge and needle counts were correct at the end of procedure. Estimated blood loss about 100 ml. Speedy Nash MD Mar 24, 2017 13:42
[2017-03-24] MEDS ORDERED: ALUMINUM/MAGNESIUM/SIMETH 30 ML CUP PO PRN (13:45)
[2017-03-24] MEDS ORDERED: ZOLPIDEM TARTRATE 5 MG TAB PO PRN (13:45)
[2017-03-24] MEDS ORDERED: ONDANSETRON HCL 4 MG/2 ML VIAL IV PRN (13:45)
[2017-03-24] MEDS ORDERED: cloNIDine HCL 0.1 MG TAB PO PRN (13:45)
[2017-03-24] MEDS ORDERED: CALCIUM GLUCONATE INJ 1 GM in SODIUM CHLORIDE 0.9% INJ 100 ML IV PRN (13:45)
[2017-03-24] MEDS ORDERED: ACETAMINOPHEN 325 MG TAB PO PRN (13:45)
[2017-03-24] MEDS ORDERED: SODIUM CHLORIDE 0.9% FLUSH 10 ML FLUSH IV FLUSH PRN (13:45)
[2017-03-24] MEDS ORDERED: PROMETHAZINE INJ 25 MG/ML VIAL IM PRN (13:45)
[2017-03-24] MEDS ORDERED: diphenhydrAMINE HCL 50 MG/ML VIAL IV PRN (13:45)
[2017-03-24] MEDS ORDERED: MORPHINE SULFATE 30 MG/30 ML PCA IV SCH (13:45)
[2017-03-24] MEDS ORDERED: NALOXONE HCL 0.4 MG/ML AMP IV PRN (13:45)
[2017-03-24] MEDS ORDERED: MENTHOL LOZENGE BUCCAL PRN (13:45)
[2017-03-24] MEDS ORDERED: MAGNESIUM HYDROXIDE SUSP 30 ML CUP PO PRN (13:45)
[2017-03-24] MEDS ORDERED: POTASSIUM CHLOR 20 MEQ PREMIX 100 ML IV PRN (13:45)
[2017-03-24] MEDS ORDERED: MAGNESIUM SULFATE INJ 2 GM in SODIUM CHLORIDE 0.9% INJ 100 ML IV PRN (13:45)
[2017-03-24 14:09] LABS: AUTOMATED NEUTROPHIL # 8.4 TH/MM3 (1.8-7.7); BASOPHIL % 0.3 % (0.0-2.0); EOSINOPHIL % 0.1 % (0.0-4.0); HEMATOCRIT 40.5 % (39.0-51.0); HEMO FLAGS DIFF FINAL; LYMPH % 10.9 % (9.0-44.0); LYMPHOCYTE # 1.1 TH/MM3 (1.0-4.8); MEAN CELL VOLUME 89.8 FL (80.0-100.0); MEAN CORPUSCULAR HEMOGLOBIN 28.9 PG (27.0-34.0); MEAN CORPUSCULAR HGB CONC 32.2 % (32.0-36.0); MONO % 1.5 % (0.0-8.0); NEUT % 87.2 % (16.0-70.0); PLATELET COUNT 259 TH/MM3 (150-450); RED BLOOD COUNT 4.51 MIL/MM3 (4.50-5.90); RED CELL DISTRIBUTION WIDTH 17.6 % (11.6-17.2); WHITE BLOOD COUNT 9.7 TH/MM3 (4.0-11.0)
[2017-03-24 14:34] LABS: BICARBONATE 23.4 MEQ/L (21.0-32.0); POTASSIUM 4.3 MEQ/L (3.5-5.1)
[2017-03-24] MEDS: CYCLOBENZAPRINE HCL 10 MG TAB PO SCH ×2 (15:00→21:33)
[2017-03-24] MEDS: NS + KCL 20 MEQ INJ 1,000 ML IV SCH (15:00)
[2017-03-24] MEDS ORDERED: NEOSTIGMINE 3 MG/3 ML SYR IV ONE (15:36)
[2017-03-24] MEDS ORDERED: ePHEDrine/NS 25 MG/5 ML SYR IV ONE (15:36)
[2017-03-24] MEDS ORDERED: PHENYLEPHRINE HCL 10 MG/ML VIAL IV ONE (15:36)
[2017-03-24] MEDS ORDERED: PROPOFOL 200 MG/20 ML AMP IV ONE (15:36)
[2017-03-24] MEDS ORDERED: ONDANSETRON HCL 4 MG/2 ML VIAL IV PUSH ONE (15:36)
[2017-03-24] MEDS: ACETAMINOPHEN/HYDROcodone 325 MG/10 MG TAB PO PRN ×2 (17:01→21:32)
[2017-03-24 17:33] VITALS: BP 149/82; PULSE 74; RESP 20; TEMP 97.6; O2SAT 99
[2017-03-24] MEDS: PCA - TOTAL MG MORPHINE DELIVERED PER SHIFT SCH ×2 (18:47→22:00)
[2017-03-24 20:30] VITALS: BP 133/67; PULSE 85; RESP 16; TEMP 97.5; O2SAT 95
[2017-03-24] MEDS: SODIUM CHLORIDE 0.9% FLUSH 10 ML FLUSH IV FLUSH SCH (21:31)
[2017-03-24] MEDS: DOCUSATE SODIUM 100 MG CAP PO SCH (21:32)
[2017-03-25] VITALS (9 sets, daily range): BP systolic 123–144; BP diastolic 65–92; PULSE 65–85; RESP 16–20; TEMP 97.7–98.4; O2SAT 95–99
[2017-03-25] MEDS: NS + KCL 20 MEQ INJ 1,000 ML IV SCH ×2 (00:52→12:35)
[2017-03-25] MEDS: PCA - TOTAL MG MORPHINE DELIVERED PER SHIFT SCH ×3 (06:00→22:00)
[2017-03-25] MEDS: CYCLOBENZAPRINE HCL 10 MG TAB PO SCH ×3 (06:10→22:26)
[2017-03-25] MEDS: SODIUM CHLOR 0.9% 1000 ML INJ 1,000 ML IV SCH (06:11)
[2017-03-25] MEDS: SODIUM CHLORIDE 0.9% FLUSH 10 ML FLUSH IV FLUSH SCH ×2 (09:00→22:25)
[2017-03-25] MEDS: LACTULOSE SYRUP 20 GM/30 ML CUP PO SCH (10:09)
[2017-03-25] MEDS: DOCUSATE SODIUM 100 MG CAP PO SCH ×2 (10:09→22:25)
[2017-03-25] MEDS: PANTOPRAZOLE SOD 40 MG DELAYED RELEASE TAB PO SCH (10:10)
[2017-03-25] MEDS: ACETAMINOPHEN/HYDROcodone 325 MG/10 MG TAB PO PRN ×2 (10:12→22:26)
--- NOTE | 2017-03-25 11:12 | HHI.NSPN ---
(Evelio Jackson) History Chief Complaint: incisional pain controlled with pain medication (Evelio Jackson) Interval History 03/25/17: Patient status post L2/L3 and L3/L4 transverse lateral interbody fusion with cage and pedicle screw fixation on 03/24/17. He complains of incisional pain controlled with his CHARRER and oral pain medication. He denies any radiculopathy or paresthesias in the lower extremities. He is tolerating his diet. He was able to ambulate with physical therapy. (Evelio Jackson) Review of Systems General: Negative for: fever, chills, insomnia Respiratory: Negative for: shortness of breath, cough, sputum Cardiovascular: Negative for: chest pain Gastrointestinal: Negative for: nausea, vomitting, diarrhea, constipation ( Evelio Jackson) Exam Results Vital Signs Date Time Temp Pulse Resp B/P (MAP) Pulse Ox O2 Delivery O2 Flow Rate FiO2 03/25/17 09:10 98.3 76 20 130/78 (95) 97 03/25/17 01:56 Nasal Cannula 2.00 Intake and Output 03/25/17 03/25/17 03/25/17 07:59 15:59 23:59 Intake Total 480 ml Output Total 2850 ml Balance -2370 ml (Evelio Jackson) Physical Examination Resp: CTA bilaterally Heart: NSR no murmurs Abd: Soft positive bs Skin: Incision clean and dry. New bandage placed. Muscle: Moves LEs with 5/5 strength. Sitting up in chair with lumbar brace on. Neuro: Pt awake and alert. Sitting up in chair. Follows commands well. Sensation intact in the lower extremities to light touch. (Evelio Jackson) Lab, Micro, Other Results Last Impressions Lumbar Spine X-Ray 03/24/17 0000 Signed Impressions: Service Date/Time: Friday, March 24, 2017 08:57 - CONCLUSION: Expected radiographic appearance in the operating room of fusion procedure with interbody and left posterior instrumentation at L2/L3 and L3/L4. Ean Shin MD Laboratory Tests Test 03/24/17 13:59 White Blood Count 9.7 TH/MM3 Red Blood Count 4.51 MIL/MM3 Hemoglobin 13.0 GM/DL Hematocrit 40.5 % Mean Corpuscular Volume 89.8 FL Mean Corpuscular Hemoglobin 28.9 PG Mean Corpuscular Hemoglobin Concent 32.2 % Red Cell Distribution Width 17.6 % Platelet Count 259 TH/MM3 Mean Platelet Volume 8.2 FL Neutrophils (%) (Auto) 87.2 % Lymphocytes (%) (Auto) 10.9 % Monocytes (%) (Auto) 1.5 % Eosinophils (%) (Auto) 0.1 % Basophils (%) (Auto) 0.3 % Neutrophils # (Auto) 8.4 TH/MM3 Lymphocytes # (Auto) 1.1 TH/MM3 Monocytes # (Auto) 0.1 TH/MM3 Eosinophils # (Auto) 0.0 TH/MM3 Basophils # (Auto) 0.0 TH/MM3 CBC Comment DIFF FINAL Differential Comment Blood Urea Nitrogen 17 MG/DL Creatinine 1.22 MG/DL Random Glucose 139 MG/DL Calcium Level 9.1 MG/DL Sodium Level 140 MEQ/L Potassium Level 4.3 MEQ/L Chloride Level 109 MEQ/L Carbon Dioxide Level 23.4 MEQ/L Anion Gap 8 MEQ/L Estimat Glomerular Filtration Rate 59 ML/MIN (Evelio Jackson) Medical Decision Making Impression and Plan A: 67-year-old male status post L2/L3 and L3/L4 transverse interbody fusion with interbody cage and pedicle screw fixation. P: Continue with pain control. D/C urinary Dunham. Continue with physical therapy (Evelio Jackson) Attending Statement The exam, history, and the medical decision-making described in the above note were completed with the assistance of the mid-level provider. I reviewed and agree with the findings presented. I attest that I had a [id number] encounter with the patient on the same day, and personally performed and documented my assessment and findings in the medical record. (Speedy Nash MD) Evelio Jackson Mar 25, 2017 11:12 Speedy Nash MD Mar 25, 2017 16:51
[2017-03-26] VITALS (7 sets, daily range): BP systolic 124–150; BP diastolic 66–85; PULSE 79–90; RESP 18; TEMP 97.4–98.1; O2SAT 94–97
[2017-03-26] MEDS: ACETAMINOPHEN/HYDROcodone 325 MG/10 MG TAB PO PRN ×4 (00:11→21:33)
[2017-03-26] MEDS: PCA - TOTAL MG MORPHINE DELIVERED PER SHIFT SCH (06:00)
[2017-03-26] MEDS: CYCLOBENZAPRINE HCL 10 MG TAB PO SCH ×3 (06:16→22:55)
[2017-03-26] MEDS: SODIUM CHLOR 0.9% 1000 ML INJ 1,000 ML IV SCH (06:17)
[2017-03-26] MEDS: SODIUM CHLORIDE 0.9% FLUSH 10 ML FLUSH IV FLUSH SCH ×2 (09:00→21:00)
[2017-03-26] MEDS: PANTOPRAZOLE SOD 40 MG DELAYED RELEASE TAB PO SCH (09:21)
[2017-03-26] MEDS: DOCUSATE SODIUM 100 MG CAP PO SCH ×2 (09:21→21:33)
[2017-03-26] MEDS: LACTULOSE SYRUP 20 GM/30 ML CUP PO SCH (09:21)
--- NOTE | 2017-03-26 09:23 | HHI.NSPN ---
(Evelio Jackson) History Chief Complaint: incisional pain controlled with pain medication (Evelio Jackson) Interval History 03/25/17: Patient status post L2/L3 and L3/L4 transverse lateral interbody fusion with cage and pedicle screw fixation on 03/24/17. He complains of incisional pain controlled with his TELEVISION PRESENTER and oral pain medication. He denies any radiculopathy or paresthesias in the lower extremities. He is tolerating his diet. He was able to ambulate with physical therapy. 03/26/17: Pt awake and alert. States pain controlled with TELEVISION PRESENTER. No radiculopathy or paresthesias. Pt ambulating with PT and sat up in chair with brace on for several hours. (Evelio Jackson) Review of Systems General: Negative for: fever, chills, insomnia Respiratory: Negative for: shortness of breath, cough, sputum Cardiovascular: Negative for: chest pain Gastrointestinal: Negative for: nausea, vomitting, diarrhea, constipation ( Evelio Jackson) Exam Results Vital Signs Date Time Temp Pulse Resp B/P (MAP) Pulse Ox O2 Delivery O2 Flow Rate FiO2 03/26/17 08:53 97.8 79 18 150/85 (106) 95 03/25/17 21:34 21 03/25/17 01:56 Nasal Cannula 2.00 Intake and Output 03/26/17 03/26/17 03/27/17 08:00 16:00 00:00 Output Total 475 ml Balance -475 ml (Evelio Jackson) Physical Examination Resp: CTA bilaterally Heart: NSR no murmurs Abd: Soft positive bs Skin: Incision clean and dry. New bandage placed by RN. Muscle: Moves LEs with 5/5 strength. Neuro: Pt awake and alert. Follows commands well. Sensation intact in the lower extremities to light touch. (Evelio Jackson) Lab, Micro, Other Results 03/26/17 03/26/17 03/27/17 15:00 23:00 07:00 Output Total 475 ml Balance -475 ml Output Urine Total 475 ml (Evelio Jackson) Medical Decision Making Impression and Plan A: 67-year-old male status post L2/L3 and L3/L4 transverse interbody fusion with interbody cage and pedicle screw fixation. P: Continue with pain control. Continue with physical therapy D/C TELEVISION PRESENTER Possible D/C tomorrow if pain controlled off TELEVISION PRESENTER. (Evelio Jackson) Attending Statement The exam, history, and the medical decision-making described in the above note were completed with the assistance of the mid-level provider. I reviewed and agree with the findings presented. I attest that I had a [id number] encounter with the patient on the same day, and personally performed and documented my assessment and findings in the medical record. (Speedy Nash MD) Evelio Jackson Mar 26, 2017 09:23 Speedy Nash MD Mar 26, 2017 12:08
[2017-03-26] MEDS ORDERED: PNEUMOCOCCAL POLYVALENT INJ 25 MCG/0.5 ML SYR IM ONE (10:00)
[2017-03-27] VITALS: BP 105/58; PULSE 99; RESP 18; TEMP 97.6; O2SAT 95
[2017-03-27] MEDS: ACETAMINOPHEN/HYDROcodone 325 MG/10 MG TAB PO PRN ×2 (03:24→09:46)
[2017-03-27 04:00] VITALS: BP 126/75; PULSE 78; RESP 18; TEMP 98; O2SAT 95
[2017-03-27] MEDS: CYCLOBENZAPRINE HCL 10 MG TAB PO SCH (06:33)
[2017-03-27 08:41] VITALS: BP 129/80; PULSE 76; RESP 20; TEMP 97.5; O2SAT 94
[2017-03-27] MEDS: SODIUM CHLORIDE 0.9% FLUSH 10 ML FLUSH IV FLUSH SCH (09:00)
[2017-03-27 09:12] VITALS: O2SAT 94
--- NOTE | 2017-03-27 09:23 | HHI.NSPN ---
History Chief Complaint: incisional pain controlled with pain medication Interval History 03/25/17: Patient status post L2/L3 and L3/L4 transverse lateral interbody fusion with cage and pedicle screw fixation on 03/24/17. He complains of incisional pain controlled with his INSECTICIDE SPRAYER and oral pain medication. He denies any radiculopathy or paresthesias in the lower extremities. He is tolerating his diet. He was able to ambulate with physical therapy. 03/26/17: Pt awake and alert. States pain controlled with INSECTICIDE SPRAYER. No radiculopathy or paresthesias. Pt ambulating with PT and sat up in chair with brace on for several hours. 03/27/17: Pt awake and alert. States incisional pain controlled. No radiculopathy or paresthesias in LEs. Pt ambulating. Had BM. Ready for discharge. Review of Systems General: Negative for: fever, chills, insomnia Respiratory: Negative for: shortness of breath, cough, sputum Cardiovascular: Negative for: chest pain Gastrointestinal: Negative for: nausea, vomitting, diarrhea, constipation Exam Results Vital Signs Date Time Temp Pulse Resp B/P (MAP) Pulse Ox O2 Delivery O2 Flow Rate FiO2 03/27/17 08:41 97.5 76 20 129/80 (96) 94 03/26/17 18:18 21 03/25/17 01:56 Nasal Cannula 2.00 Intake and Output 03/27/17 03/27/17 03/28/17 08:00 16:00 00:00 Output Total 750 ml Balance -750 ml Physical Examination Resp: CTA bilaterally Heart: NSR no murmurs Abd: Soft positive bs Skin: Incision clean and dry. No signs of infection. I placed a new bandage. Muscle: Moves LEs with 5/5 strength in LEs. Neuro: Pt awake and alert. Follows commands well. Sensation intact in the lower extremities to light touch. Lab, Micro, Other Results 03/27/17 03/27/17 03/28/17 15:00 23:00 07:00 Output Total 750 ml Balance -750 ml Output Urine Total 750 ml Medical Decision Making Impression and Plan A: 67-year-old male status post L2/L3 and L3/L4 transverse interbody fusion with interbody cage and pedicle screw fixation. P: D/C pt home Discussed restrictions. Evelio Jackson Mar 27, 2017 09:23
[2017-03-27] MEDS ORDERED: CYCL1TAB29 PO (09:28)
[2017-03-27] MEDS: PANTOPRAZOLE SOD 40 MG DELAYED RELEASE TAB PO SCH (09:46)
[2017-03-27] MEDS: DOCUSATE SODIUM 100 MG CAP PO SCH (09:46)
[2017-03-27] MEDS: LACTULOSE SYRUP 20 GM/30 ML CUP PO SCH (09:46)
--- NOTE | 2017-04-17 14:24 | HHI.DS ---
Discharge Summary Admission Date Mar 24, 2017 at 05:49 Discharge Date: Mar 27, 2017 Admitting Diagnosis Lumbar Degenerative Disc Disease (1) Facet arthropathy, lumbar Diagnosis: Principal ICD Code: M12.88 - Other specific arthropathies, not elsewhere classified, other specified site Status: Acute (2) Lumbar stenosis with neurogenic claudication Diagnosis: Principal ICD Code: M48.06 - Spinal stenosis, lumbar region Status: Acute (3) Lumbar degenerative disc disease Diagnosis: Principal ICD Code: M51.36 - Other intervertebral disc degeneration, lumbar region Status: Acute (4) Lumbar foraminal stenosis Diagnosis: Principal ICD Code: M99.83 - Other biomechanical lesions of lumbar region Status: Acute (5) Spondylolisthesis of lumbar region Diagnosis: Principal ICD Code: M43.16 - Spondylolisthesis, lumbar region Status: Acute (6) Spondylolisthesis at L5-S1 level Diagnosis: Principal ICD Code: M43.17 - Spondylolisthesis, lumbosacral region Status: Acute (7) Low back pain Diagnosis: Principal ICD Code: M54.5 - Low back pain Status: Acute Procedures Lumbar L2/L3 and L3/L4 transforaminal interbody fusion; L2 through L4 pedicle screw fixation; L2/L3 and L3/L4 interbody cage placement by Dr. Nash on . Brief History This is a 67-year-old male who presented to our office for an evaluation of low back painhad for the last year and a half and has progressively gotten worse. He states the pain extends into the posterior left leg to the knee. He has a history of bilateral knee replacement in his right knee needs to be replaced again and he hasn't undergone this I recuperated from this. He denies any paresthesias in his legs. He has a significant difficulty standing and walking. He states his pain in the low back is controlled when he is sitting or lying down. When he walks he has a kyphotic posture to help the pain. He rates his pain as 5-6/10. He states he has had physical therapy which exacerbated his low back pain. Imaging MRI of the lumbar spine from October 13, 2016 reveals severe L2/L3 and L3/L4 degenerative disc disease with near complete disc height collapse and endplate changes along with a grade 1 L3/L4 spondylolisthesis. There is facet and ligamentum flavum hypertrophy along with disc protrusion leading to moderate L2 through L4 spinal stenosis. There is also moderate L5/S1 degenerative disc disease with a grade 1 spondylolysis and associated foraminal stenosis. Hospital Course Patient underwent the above-noted procedure performed by Dr. Nash. There was no intraoperative complications. Postoperatively patient was admitted to the medical surgical floor. His pain was controlled with a BRUSH FINISHER. Physical therapy was consulted and his activity status was increased. Patient's Dunham catheter was discontinued. Patient's BRUSH FINISHER was discontinued. Patient was discharged home in stable condition. Pt Condition on Discharge: Stable Discharge Disposition: Discharge Home Discharge Instructions DIET: Follow Instructions for: As Tolerated, No Restrictions ACTIVITIES You can perform: Shower Only-No Bath Activities to Avoid: Lifting/Bending, Prolonged Standing, Strenuous Activity, Bathing, Driving ADDITIONAL Activity Instructio: Lumbar brace on when to sitting, standing or walking. New Medications: Cyclobenzaprine (Flexeril) 10 Mg Tab 10 MG PO Q8H, #30 TAB Continued Medications: Amlodipine (Amlodipine) 10 Mg Tab 10 MG PO DAILY for Blood Pressure Management, #30 TAB 0 Refills Discontinued Medications: Hydrocodone-Acetaminophen (Hydrocodone-Acetaminophen) 7.5-325 mg Tab 1 TAB PO Q6H PRN for PAIN, TAB 0 Refills Evelio Jackson Apr 17, 2017 14:24
== END 2017-03-27 10:00 | disposition home or self-care (01) | DRG 460 ==
LOC: HSDI 05:49 → N05B 16:42
PROVIDERS: ADMIT Neurological Surgery; ATTEND Neurological Surgery
PROC: 0ST20ZZ Resection of Lumbar Vertebral Disc, Open Approach (ICD-10-PCS; 2017-03-24)
PROC: 0SG10AJ Fusion of 2 or more Lumbar Vertebral Joints with Interbody Fusion Device, Posterior Approach, Anterior Column, Open Approach (ICD-10-PCS; principal; 2017-03-24 08:41)
DX: M51.16 Intervertebral disc disorders with radiculopathy, lumbar region (principal); I10 Essential (primary) hypertension; M48.06 Spinal stenosis, lumbar region; M43.16 Spondylolisthesis, lumbar region; Z96.653 Presence of artificial knee joint, bilateral; F41.9 Anxiety disorder, unspecified; Z23 Encounter for immunization
CPT/HCPCS: 72100; 76000; 80048; 85025; 86850; 86900; 86901; 86920; 90471; 90732; 94150; C1713; G0009; J0690; J1100; J2250; J2270; J2370; J2405; J2710; J3010; J3370; J3480; J7030; J7050; J7120